=== PATIENT | female | born 1970 ===

== ENCOUNTER 2017-05-26 11:56 | Emergency (ER) | payer OTHER ==
[2017-05-26 11:57] VITALS: BMI 45.3
[2017-05-26 12:35] VITALS: BP 112/71; PULSE 82; RESP 18; TEMP 97.9; O2SAT 98
--- NOTE | 2017-05-26 14:04 | ED PDOC ---
Arrival/HPI - General Historian: Patient, Family - History of Present Illness Time/Duration: 24 hours Symptom Onset: Sudden Symptom Course: Unchanged Quality: Other (itching) Activities at Onset: Rest, Light Context: Home - General Chief Complaint: Eye Problem Time Seen by Provider: 05/26/17 12:45 - History of Present Illness Narrative History of Present Illness (Text): 05/26/17 14:06 Ms. Roger Massey is a 46 year old female with a past medical history significant for DM2 and HTN who presents to the [facility] ED with a chief complaint of eye itchiness for the past two days and a right lower eyelid nodule that she noticed last night. Patient endorses that for the past two days, her right eye has been itching with no incident of note at onset. Patient reports that she has had associated blurry vision in the right eye and minimal watery discharge but denies pain with eye movement, redness/rash around eye, conjunctival hemorrhage or erythema. She also reports that she noticed a small nodule on her right lower eyelid that she states is new. She denies fever, chills, headache, epistaxis, facial numbness/tingling, facial droop, slurred speech, chest pain, SOB, abdominal pain, N/V/D/C, burning with urination, rashes or any numbness/ tingling/weakness of any extremity. (Baldev Aguirre) Past Medical History - Provider Review Nursing Documentation Reviewed: Yes - Travel History Have you recently traveled outside [place] w/in the past 3 mons?: No - Past History Past History: No Previous - Infectious Disease Hx of Infectious Diseases: None - Tetanus Immunization Tetanus Immunization: Unknown - Past Medical History Past Medical History: No Previous - Cardiac Hx Hypertension: Yes - Neurological Hx Migraine: Yes - Endocrine/Metabolic Hx Diabetes Mellitus Type 2: Yes - Psychiatric Hx Substance Use: No - Past Surgical History Past Surgical History: No Previous - Suicidal Assessment Feels Threatened In Home Enviroment: No Family/Social History - Physician Review Nursing Documentation Reviewed: Yes Family/Social History: No Known Family HX Smoking Status: Never Smoked Hx Alcohol Use: No Hx Substance Use: No Hx Substance Use Treatment: No Allergies/Home Meds Allergies/Adverse Reactions: Allergies No Known Allergies Allergy (Verified 05/26/17 12:10) Home Medications: Home Meds Medication Instructions Recorded Confirmed Lisinopril [Zestril] 30 mg PO DAILY 05/26/17 05/26/17 Propranolol [Inderal LA] 80 mg PO DAILY 05/26/17 05/26/17 Sulindac [Sulindac] 150 mg PO DAILY 05/26/17 05/26/17 metFORMIN [glucOPHAGE] 500 mg PO BID 05/26/17 05/26/17 Review of Systems - Physician Review All systems were reviewed & negative as marked: Yes - Review of Systems Constitutional: Normal. absent: Fevers, Night Sweats Eyes: Vision Changes (Blurry vision in R eye), Other (Eye itchiness and "bump" in R eyelid). absent: Normal, Photophobia, Eye Pain ENT: Normal. absent: Hearing Changes, Voice Changes, Epistaxis Respiratory: Normal. absent: SOB Cardiovascular: Normal. absent: Chest Pain Gastrointestinal: Normal. absent: Abdominal Pain, Constipation, Diarrhea, Nausea, Vomiting Genitourinary Female: Normal. absent: Dysuria Musculoskeletal: Normal. absent: Neck Pain Skin: Normal. absent: Rash Neurological: Normal. absent: Headache, Dizziness Endocrine: Normal Hemo/Lymphatic: Normal Psychiatric: Normal Physical Exam Vital Signs Reviewed: Yes Temperature: Afebrile Blood Pressure: Normal Pulse: Regular Respiratory Rate: Normal Appearance: Positive for: Well-Appearing, Non-Toxic, Comfortable Pain Distress: None Mental Status: Positive for: Alert and Oriented X 3 - Systems Exam Head: Present: Atraumatic, Normocephalic Pupils: Present: PERRL Extroacular Muscles: Present: EOMI Conjunctiva: Present: Normal, Other (1-2mm nodule with overlying erythema internally on lower R eyelid, no drainage or fluctuance) Mouth: Present: Moist Mucous Membranes Neck: Present: Normal Range of Motion Respiratory/Chest: Present: Clear to Auscultation, Good Air Exchange. No: Respiratory Distress, Accessory Muscle Use Cardiovascular: Present: Regular Rate and Rhythm, Normal S1, S2. No: Murmurs Abdomen: Present: Normal Bowel Sounds. No: Tenderness, Distention, Peritoneal Signs Back: Present: Normal Inspection Upper Extremity: Present: Normal Inspection. No: Cyanosis, Edema Lower Extremity: Present: Normal Inspection. No: Edema Neurological: Present: GCS=15, CN II-XII Intact, Speech Normal Skin: Present: Warm, Dry, Normal Color. No: Rashes Psychiatric: Present: Alert, Oriented x 3, Normal Insight, Normal Concentration Vital Signs Temp Pulse Resp BP Pulse Ox 05/26/17 12:14 97.9 F 82 18 112/71 98 05/26/17 12:07 97.9 F 82 18 112/71 98 Medical Decision Making ED Course and Treatment: Patient Seen With Resident: In agreement with resident note which contains more details about the patient. Patient was seen and evaluated with resident. Came up with plan and treatment together. (Willie Bal DO) 05/26/17 14:04 Impression: 46 year old female with a past medical history significant for DM2 and HTN who presents to the [facility] ED with a chief complaint of eye itchiness for the past two days and a right lower eyelid nodule that she noticed last night Plan: -Polymyxin/Trimethoprim Sulfate Eye drops -Referal to Ophtho Prior Visits: 2015: Patient seen and evaluated for headache (Baldev Aguirre) Disposition/Present on Arrival - Present on Arrival Any Indicators Present on Arrival: No History of DVT/PE: No History of Uncontrolled Diabetes: No Urinary Catheter: No History of Decub. Ulcer: No History Surgical Site Infection Following: None - Disposition Have Diagnosis and Disposition been Completed?: Yes Disposition Time: 12:35 Patient Plan: Discharge - Disposition Diagnosis: Cyst of eyelid Disposition: HOME/ ROUTINE Condition: GOOD Discharge Instructions (ExitCare): Cyst (ED) Additional Instructions: Thank you for letting us take care of you today. The emergency medical care you received today was directed at your acute symptoms. If you were prescribed any medication, please fill it and take as directed. It may take several days for your symptoms to resolve. Return to the Emergency Department if your symptoms worsen, do not improve, or if you have any other problems. Please contact your doctor or call one of the physicians/clinics you have been referred to that are listed on the Patient Visit Information form that is included in your discharge packet. Bring any paperwork you were given at discharge with you along with any medications you are taking to your follow up visit. Our treatment cannot replace ongoing medical care by a primary care provider (PCP) outside of the emergency department. Thank you for allowing the [facility] team to be part of your care today. Follow up with the eye doctor in 1-2 days for re-evaluation and further management. Prescriptions: Polymyxin/Trimethoprim Sulfate [Polytrim Ophth Soln] 1 drop OD Q6 #1 bottle Referrals: Tutu Grant [Staff Provider] - Follow up with primary Forms: indidebt (Eritrean)
== END 2017-05-26 13:18 | disposition home or self-care (01) ==
LOC: ED 11:56
DX: H02.822 Cysts of right lower eyelid (principal); E11.9 Type 2 diabetes mellitus without complications; I10 Essential (primary) hypertension; Z79.84 Long term (current) use of oral hypoglycemic drugs